=== PATIENT | male | born 1955 | race Caucasian/White ===

== ENCOUNTER 2018-04-12 14:52 | Inpatient (IN) | payer MEDICARE ==
[~2018-04-12] VITALS: Ht 177.8 cm; Wt 92.2 kg
[~2018-04-12 14:52] MED LIST: HUMALOG MI100 UNITS/ SC; LOSARTAN POTASS25 MG PO; PRAVASTATIN SOD40 MG PO
[2018-04-12] MEDS ORDERED: ONDANSETRON HCL INJ 2 MG/ML VIAL IV STA (15:22)
[2018-04-12] MEDS ORDERED: DIATRIZOATE MEGL/DIATRIZOA SOD 30 ML BTL PO ONE (15:29)
[2018-04-12] MEDS ORDERED: HYOSCYAMINE SULFATE 0.5 MG/ML AMP IV ONE (15:30)
[2018-04-12] MEDS ORDERED: SODIUM CHLORIDE 0.9% 1000ML 1,000 ML IV ONE (15:30)
[2018-04-12 16:26] LABS: CLARITY,URINE CLOUDY (CLEAR); COLOR,URINE YELLOW (YELLOW); LEUKOCYTE ESTERASE ,URINE TRACE (NEGATIVE); NITRITE,URINE NEGATIVE (NEGATIVE); PROTEIN,URINE DIPSTICK 1+ (NEGATIVE)
[2018-04-12 16:27] LABS: BILIRUBIN,URINE NEGATIVE (NEGATIVE); KETONES,URINE NEGATIVE (NEGATIVE); URINE UROBILINOGEN 0.2 mg/dL (0.2 - 1)
[2018-04-12 16:39] LABS: BACTERIA,URINE FEW /HPF
[2018-04-12 16:40] LABS: AMORPHOUS SEDIMENT,URINE FEW (FEW); MUCUS,URINE FEW (RARE)
[2018-04-12] MEDS ORDERED: ONDANSETRON HCL 4 MG ORAL DISINTEGRATING TAB PO ONE (16:45)
[2018-04-12 16:48] LABS: HEMATOCRIT 48.7 % (38.2-49.6); HEMOGLOBIN 16.4 g/dL (14.0-18.0); MEAN CORPUSCULAR HEMOGLOBIN 29.4 pg (28-32); MEAN CORPUSCULAR HGB CONC 33.7 g/dL (31-35); MEAN CORPUSCULAR VOLUME 87.3 fL (81-99); PLATELET COUNT 263 x10e3/uL (140-360); RED BLOOD COUNT 5.58 x10e6/uL (4.3-5.7); RED CELL DISTRIBUTION WIDTH 12.9 % (11.7-14.4)
[2018-04-12] MEDS ORDERED: GLYCOPYRROLATE INJ 1MG/ 5 ML SYR ONE (16:57)
[2018-04-12] MEDS ORDERED: DEXAMETHASONE SOD PHOS INJ 4 MG/ML VIAL ONE (16:57)
[2018-04-12] MEDS ORDERED: LIDOCAINE HCL 2% LOCAL INJ 5 ML SDV VIAL INJ ONE (16:57)
[2018-04-12] MEDS ORDERED: SEVOFLURANE INHAL SOLN 250 ML PEN BTL ONE (16:57)
[2018-04-12] MEDS ORDERED: ONDANSETRON HCL INJ 2 MG/ML VIAL ONE (16:57)
[2018-04-12] MEDS ORDERED: EPHEDRINE SULFATE INJ 50 MG/10 ML SYR ONE (16:57)
[2018-04-12] MEDS ORDERED: PROPOFOL IV EMULSION 10 MG/ML 20 ML VIAL ONE (16:57)
[2018-04-12 17:07] LABS: ALBUMIN 4.7 g/dL (3.5-5.0); ALBUMIN/GLOBULIN RATIO 1.7 (0.8-2.0); ANION GAP 15.9 mmol/L (8-16); CALCIUM 10.7 mg/dL (8.4-10.2); CREATININE, SERUM 1.28 mg/dL (0.72-1.25); POTASSIUM 3.9 mmol/L (3.5-5.1)
[2018-04-12] MEDS ORDERED: MORPHINE SULFATE 4 MG/ML SYR IV ONE (17:45)
[2018-04-12] MEDS ORDERED: MORPHINE SULFATE 2 MG/ML SYR ONE (17:51)
--- NOTE | 2018-04-12 17:56 | Diagnostic Imaging Report ---
PROCEDURE: CT ABDOMEN AND PELVIS WITH CONTRAST TECHNIQUE: The abdomen and pelvis were scanned utilizing a multidetector helical scanner from the diaphragm to the lesser trochanter after the IV administration of 100 cc of Isovue 370 and the oral administration of 900 mL of Gastrografin/water. Coronal and sagittal multiplanar reformations were obtained. COMPARISON: None. INDICATIONS: LEFT LOWER QUADRANT PAIN FINDINGS: LOWER THORAX: Normal. HEPATOBILIARY: No focal hepatic lesions. No biliary ductal dilatation. SPLEEN: No splenomegaly. Multiple healed granulomas in the spleen. PANCREAS: No focal masses or ductal dilatation. ADRENALS: No adrenal nodules. KIDNEYS/URETERS: There is a 3 mm stone in the left proximal ureter with very mild left hydronephrosis and hydroureter. There is delayed enhancement of the left kidney and perinephric stranding related to the ureteral obstruction. 5.1 cm simple cyst in the interpolar region of the left kidney. PELVIC ORGANS/BLADDER: Unremarkable. PERITONEUM / RETROPERITONEUM: No free air or fluid. LYMPH NODES: No lymphadenopathy. VESSELS: Mild atherosclerotic calcifications of the aorta and its branches. GI TRACT: No distention or wall thickening. Numerous sigmoid diverticula without evidence of acute inflammation. The appendix is not visualized, but there is no suspicious inflammation in the right lower quadrant. Small hiatal hernia. BONES AND SOFT TISSUES: Multilevel spondylosis of the thoracic and lumbar spine.. IMPRESSION: 3 mm stone in the left proximal ureter with very mild left hydronephrosis and hydroureter. Dictated by: Yoshi Johnson M.D. on 04/12/2018 at 17:58 Electronically approved by: Yoshi Johnson M.D. on 04/12/2018 at 17:58
[2018-04-12 18:24] LABS: LYMPHOCYTES % (MANUAL) 16 % (19-48); METAMYELOCYTES % (MANUAL) 1 % (0-0); MONOCYTES % (MANUAL) 1 % (3.4-9.0); NEUTROPHILS % (MANUAL) 75 % (40-74)
[2018-04-12 18:25] LABS: PLATELET ESTIMATE ADEQUATE; PLATELET MORPHOLOGY COMMENT NORMAL; RBC MORPHOLOGY COMMENT NORMAL
[2018-04-12] MEDS ORDERED: HYOSCYAMINE SULFATE 0.5 MG/ML AMP IV PRN (18:30)
[2018-04-12] MEDS ORDERED: SODIUM CHLORIDE FLUSH 10 ML SYR INJ PRN (18:30)
[2018-04-12] MEDS ORDERED: ONDANSETRON HCL INJ 2 MG/ML VIAL IV PRN (18:30)
--- OUTSIDE RECORDS SUMMARY | 2018-04-12 18:54 | XMS REPORT ---
Author Author [facility] Address Unknown Phone Unavailable Care Team Providers Care [employer] Manager Name Role Phone INGRID TORREZ Unavailable Unavailable Problems This patient has no known problems. Allergies, Adverse Reactions, Alerts This patient has no known allergies or adverse reactions. Medications This patient has no known medications. Results Test Description Test Time Test Comments Text Results Atomic Results Result Comments CT ABDOMEN/PELVIS W [place] [address] Patient Name: BRENDON HE MR #: [id number] : 1955 Age/Sex: 62/M Req #: [id number] Adm Physician: Ordered by: INGRID TORREZ MD Report #: [id number] Location: ER Room/Bed: Procedure: [id number] CT/CT ABDOMEN/PELVIS W Exam Date: Exam Time: REPORT STATUS: Signed PROCEDURE: CT ABDOMEN AND PELVIS WITH CONTRAST TECHNIQUE: The abdomen and pelvis were scanned utilizing a multidetector helical scanner from the diaphragm to the lesser trochanter after the IV administration of 100 cc of Isovue 370 and the oral administration of 900 mL of Gastrografin/water. Coronal and sagittal multiplanar reformations were obtained. COMPARISON: None. INDICATIONS: LEFT LOWER QUADRANT PAIN FINDINGS: LOWER THORAX: Normal. HEPATOBILIARY: No focal hepatic lesions. No biliary ductal dilatation. SPLEEN: No splenomegaly. Multiple healed granulomas in the spleen. PANCREAS: No focal masses or ductal dilatation. ADRENALS: No adrenal nodules. KIDNEYS/URETERS: There is a 3 mm stone in the left proximal ureter with very mild left hydronephrosis and hydroureter. There is delayed enhancement of the left kidney and perinephric stranding related to the ureteral obstruction. 5.1 cm simple cyst in the interpolar region of the left kidney. PELVIC ORGANS/BLADDER: Unremarkable. PERITONEUM / RETROPERITONEUM: No free air or fluid. LYMPH NODES: No lymphadenopathy. VESSELS: Mild atherosclerotic calcifications of the aorta and its branches. GI TRACT: No distention or wall thickening. Numerous sigmoid diverticula without evidence of acute inflammation. The appendix is not visualized, but there is no suspicious inflammation in the right lower quadrant. Small hiatal hernia. BONES AND SOFT TISSUES: Multilevel spondylosis of the thoracic and lumbar spine.. IMPRESSION: 3 mm stone in the left proximal ureter with very mild left hydronephrosis and hydroureter. Dictated by: Cleveland Sears M.D. on 04/12/2018 at 17:58 Electronically approved by: Cleveland Sears M.D. on 04/12/2018 at 17:58 Dictated By: CLEVELAND SEARS MD 57 Transcribed By: NADIYA on 04/12/181757 COPY TO: INGRID TORREZ MD
[2018-04-12] MEDS: SODIUM CHLORIDE 0.9% 1000ML 1,000 ML IV SCH (19:00)
[2018-04-12] MEDS: ENALAPRILAT IV INJ 1.25 MG/ML VIAL IV PRN (19:00)
[2018-04-12 20:00] VITALS: BP 149/97
[2018-04-12] MEDS ORDERED: IOPAMIDOL 370 MG/ML 200 ML INFUS..BTL INJ ONE (20:55)
[2018-04-12] MEDS ORDERED: SODIUM CHLORIDE 0.9% 50ML 50 ML ONE (20:55)
[2018-04-12 21:00] VITALS: BP 149/97
[2018-04-13] VITALS (7 sets, daily range): BP systolic 101–158; BP diastolic 60–95
[2018-04-13] MEDS: SODIUM CHLORIDE 0.9% 1000ML 1,000 ML IV SCH ×4 (04:45→23:25)
[2018-04-13 06:15] LABS: BASOPHILS # (AUTO) 0.1 (0.0-0.1); BASOPHILS % 0.5 % (0.0-1.0); EOSINOPHILS # (AUTO) 0.3 (0.0-0.4); EOSINOPHILS % 1.9 % (0.0-6.0); HEMOGLOBIN 13.9 g/dL (14.0-18.0); LYMPHOCYTES # (AUTO) 4.5 (1.0-3.2); LYMPHOCYTES % 30.3 % (18.0-39.1); MEAN CORPUSCULAR HEMOGLOBIN 29.4 pg (28-32); MEAN CORPUSCULAR HGB CONC 33.1 g/dL (31-35); MONOCYTES # (AUTO) 1.3 (0.2-0.8); MONOCYTES % 8.7 % (4.4-11.3); NEUTROPHILS # (AUTO) 8.6 (2.1-6.9); NEUTROPHILS % 58.3 % (38.7-80.0); PLATELET COUNT 224 x10e3/uL (140-360); RED BLOOD COUNT 4.72 x10e6/uL (4.3-5.7); RED CELL DISTRIBUTION WIDTH 13.1 % (11.7-14.4)
[2018-04-13 06:50] LABS: ANION GAP 11.9 mmol/L (8-16); BLOOD UREA NITROGEN 19 mg/dL (7-26); BUN/CREATININE RATIO 19 (6-25); CALCIUM 9.6 mg/dL (8.4-10.2); CARBON DIOXIDE 26 mmol/L (22-29); CHLORIDE 109 mmol/L (98-107); CREATININE, SERUM 0.99 mg/dL (0.72-1.25); EST GLOMERULAR FILTRATION RATE > 60 ML/MIN (60-); GLUCOSE 85 mg/dL (74-118); POTASSIUM 3.9 mmol/L (3.5-5.1); SODIUM 143 mmol/L (136-145)
[2018-04-13] MEDS: NITROFURANTOIN MACROCRYSTALS 100 MG CAP PO SCH ×2 (09:33→17:54)
[2018-04-13] MEDS: MORPHINE SULFATE 2 MG/ML SYR IV PRN ×2 (13:20→17:55)
--- NOTE | 2018-04-13 14:15 | Diagnostic Imaging Report ---
PROCEDURE:US RETROPERITONEAL ( KIDNEY ). COMPARISON:Patients [facility], CT, CT ABDOMEN/PELVIS W, 04/12/2018, 17:26. INDICATIONS:left kid stones TECHNIQUE: Florentino-scale and color sonographic images of the bilateral kidneys and bladder where obtained in transverse and longitudinal planes. FINDINGS: RIGHT KIDNEY: 13.2 cm, cortex 1.5 cm Cysts: None Solid masses: None Stones: None Hydronephrosis: None Echogenicity: Normal LEFT KIDNEY: 12.5 cm, cortex 2.1 cm Cysts: 5.2 x 4.4 x 4.8 cm cystic, anechoic partially exophytic in the superolateral aspect lesion Solid masses: None Stones: None Hydronephrosis: None Echogenicity: Normal Bladder: No focal lesions. Bilateral ureteral jets are identified. Prostate: 2.0 x 1.7 x 2.7 cm (estimated volume of 4.9 CC). CONCLUSION: 1. Normal bilateral renal size and echogenicity. No hydronephrosis, stone, or solid lesions. 2. 5.2 cm simple cyst in the superolateral aspect of the left kidney. Pedro Joaquin M.D. Dictated by: Pedro Joaquin M.D. on 04/13/2018 at 14:17 Electronically approved by: Pedro Joaquin M.D. on 04/13/2018 at 14:17
[2018-04-13] MEDS: LEVOFLOXACIN 500MG/D5W 100ML 100 ML IV SCH (14:30)
--- NOTE | 2018-04-13 15:07 | Diagnostic Imaging Report ---
PROCEDURE:X-RAY ABDOMEN - KUB COMPARISON:None. INDICATIONS:CALCULI OF KIDNEY FINDINGS: There is a non-obstructed bowel-gas pattern with prominent residual contrast retained in the transverse colon, which obscures the renal shadows. No calcifications projected over the expected course of the ureters or bladder. Multiple pelvic phleboliths. There are no acute osseous abnormalities. The visualized lung bases are clear. Degenerative disc changes in the lumbosacral spine. Mild degenerative changes in the hip joints. CONCLUSION: Evaluation of the kidneys for calcifications is limited by retained contrast in the colon, which obscures the renal shadows. No calcifications project over the expected course of the ureters or bladder. Pedro Joaquin M.D. Dictated by: Pedro Joaquin M.D. on 04/13/2018 at 15:09 Electronically approved by: Pedro Joaquin M.D. on 04/13/2018 at 15:09
[2018-04-13] MEDS: TAMSULOSIN HCL 0.4 MG CAP PO SCH (20:11)
[2018-04-13] MEDS ORDERED: MORPHINE SULFATE 2 MG/ML SYR IV PRN (20:30)
[2018-04-13] MEDS ORDERED: ONDANSETRON HCL 4 MG ORAL DISINTEGRATING TAB PO PRN (20:45)
--- NOTE | 2018-04-13 22:43 | Consultation ---
DATE OF CONSULTATION: April 13, 2018 SERVICE: Urology. ATTENDING: Dr. Denisse Rain HISTORY OF PRESENT ILLNESS: This is a 62-year-old patient was admitted to the hospital for left flank pain. He had a CT scan of the abdomen and pelvis that revealed a 3-mm stone in the upper ureter and mild hydronephrosis. Patient denies any previous history of nephrolithiasis. No previous symptoms similar to the current ones. REVIEW OF SYSTEMS: Twelve systems reviewed. Constitutional: No fever no chills. Minimal dysuria. All other systems negative. PAST HISTORY: See previous notes. MEDICATION: See the EMR. SOCIAL HISTORY: Occasional alcohol. No use of illicit drugs or tobacco. FAMILY HISTORY: Also. PAST MEDICAL HISTORY: Also, significant for diabetes mellitus, mild hypertension. PHYSICAL EXAM VITALS: Blood pressure 140/80, pulse 88, temperature 97.8, respirations 18. GENERAL: The patient is alert and oriented times 3. Does not seem to complain from pain. HEENT: Head symmetric. Eyes are normal movement. NECK: No JVD or mass. CHEST: Clear. HEART: Regular. ABDOMEN: Soft with some left CVA tenderness. External genitalia uncircumcised. No testicular masses. LOWER EXTREMITIES: Moves all. LABORATORY DATA: CT scan of the abdomen and pelvis report was mentioned earlier, 3-mm stone in the upper ureter on the left side and mild hydronephrosis. White count 14.77, hemoglobin 13.9. Chemistry, electrolytes normal, creatinine 0.99, BUN 19. Urinalysis 11 to 20 red blood cells and 11 to 20 white blood cells per high power field. IMPRESSIONS 1. Left renal colic. 2. Left ureterolithiasis. 3. Left hydronephrosis. 4. Diabetes mellitus. 5. History of left total knee. PLAN: Pending his symptoms, consider additional steps. He may need placement of double-J stent on the left side before any further management. Thank you. Will follow with you. Job#: [id number] CQ
[2018-04-14] VITALS (7 sets, daily range): BP systolic 113–164; BP diastolic 70–108
[2018-04-14] MEDS: NITROFURANTOIN MACROCRYSTALS 100 MG CAP PO SCH ×2 (08:00→17:16)
[2018-04-14] MEDS: SODIUM CHLORIDE 0.9% 1000ML 1,000 ML IV SCH ×3 (09:40→20:42)
[2018-04-14] MEDS ORDERED: IOPAMIDOL 610MG/1ML 300 MG/ML VIAL IV ONE (11:48)
[2018-04-14] MEDS: LEVOFLOXACIN 500MG/D5W 100ML 100 ML IV SCH (14:11)
[2018-04-14] MEDS ORDERED: FENTANYL CITRATE/PF 100MCG/2 ML INJ ONE (15:10)
[2018-04-14] MEDS: ENALAPRILAT IV INJ 1.25 MG/ML VIAL IV PRN (16:15)
[2018-04-14] MEDS: TAMSULOSIN HCL 0.4 MG CAP PO SCH (20:42)
--- NOTE | 2018-04-14 23:10 | Operative Report ---
DATE OF PROCEDURE: April 14, 2018 SERVICE: Urology. ATTENDING PHYSICIAN: Dr. Denisse Altamirano PREOPERATIVE DIAGNOSES: 1. Left renal colic. 2. Left ureterolithiasis. 3. Microhematuria. POSTOPERATIVE DIAGNOSES: 1. Left renal colic. 2. Left ureterolithiasis. 3. Microhematuria. 4. Urethral stricture. OPERATIONS PERFORMED: 1. Cystoscopy and urethral dilation. 2. Right retrograde pyelograms under fluoroscopic control. This is done as part of the assessment of microhematuria, not related to the contralateral side. 3. Left retrograde pyelograms under fluoroscopic control. 4. Left ureteroscopy with stone basket removal of stone from the distal ureter. 5. Placement of double-J stent 7-[place] 24 cm long to the left side. DRY CANS OPERATOR: None. ANESTHESIA: General. CLINICAL INDICATION NOTE: This is a 62-year-old patient presented with left renal colic, found to have a stone. The pain persists and did not pass the stone. He was brought for treatment and attempt hopefully to remove the stone. Procedure was discussed with the patient. Potential benefits and complication discussed, explained and accepted. DESCRIPTION OF PROCEDURE AND FINDINGS: After proper level of anesthesia was achieved, the patient was placed in lithotomy position, prepped and draped in sterile fashion. Upon insertion of the cystoscope, a stricture was noticed to be dilated to 28-[place]. Scope was then inserted to the bladder. No tumor was seen in the bladder. There was question of a protruding stone from the left ureteral orifice, it was not possible to pull it out. Open-end catheter was inserted to the right side, and retrograde pyelograms demonstrating a normal system. Drainage was prompt. Following this, a wire was passed up to the left side, retrograde pyelograms demonstrating dilation of the ureter and upper collecting system and a blocking stone. Following this, the wire was kept in place and a semi-rigid short ureteroscope was inserted. The stone was identified and engaged in a stone basket and removed. The wire was kept in place, and a 7-[place] 24 cm long double-J stent was properly positioned on the left side. This was verified by endoscopy and x-ray. Following this, Councill-tip type of catheter 22-[place]er was placed over the wire and placed in the bladder. Patient tolerated the procedure well, was transferred in satisfactory condition to recovery room. He will be followed. Job#: [id number] cc:HONG ALTAMIRANO MD
[2018-04-15] VITALS: BP 127/70
[2018-04-15 04:00] VITALS: BP 137/80
[2018-04-15 07:00] VITALS: BP 154/84
[2018-04-15] MEDS: NITROFURANTOIN MACROCRYSTALS 100 MG CAP PO SCH (08:00)
[2018-04-15 08:03] VITALS: BP 154/84
[2018-04-15] MEDS: SODIUM CHLORIDE 0.9% 1000ML 1,000 ML IV SCH (10:24)
[2018-04-15 12:00] VITALS: BP 148/95
[2018-04-15] MEDS: LEVOFLOXACIN 500MG/D5W 100ML 100 ML IV SCH (14:46)
--- NOTE | 2018-04-15 14:54 | Operative Report ---
DATE OF PROCEDURE: April 14, 2018 SERVICE: Urology. ATTENDING PHYSICIAN: Dr. Julian Rowley PREOPERATIVE DIAGNOSIS: Dictation ended abruptly 00:34 seconds. Job#: [id number]
[2018-04-15] MEDS ORDERED: TYLENOL WITH C1 EACH PO (15:55)
[2018-04-15] MEDS ORDERED: LEVAQUIN500 MG PO (15:55)
[2018-04-15 16:00] VITALS: BP 159/101
[2018-05-04] MEDS ORDERED: METFORMIN PO (08:20)
[2018-05-04] MEDS ORDERED: LISINOPRIL PO (08:20)
[2018-05-04] MEDS ORDERED: GLIMEPIRIDE PO (08:20)
== END 2018-04-15 16:34 | disposition home or self-care (01) | DRG 669 ==
LOC: ER 14:52 → ERHOLD 18:51 → IMCU 20:09 → OBSVTOIN 04-15 15:30
PROC: 0TC78ZZ Extirpation of Matter from Left Ureter, Via Natural or Artificial Opening Endoscopic (ICD-10-PCS; 2018-04-14)
PROC: BT141ZZ Fluoroscopy of Kidneys, Ureters and Bladder using Low Osmolar Contrast (ICD-10-PCS; 2018-04-14)
PROC: 0T778DZ Dilation of Left Ureter with Intraluminal Device, Via Natural or Artificial Opening Endoscopic (ICD-10-PCS; 2018-04-14)
PROC: 0T7D8ZZ Dilation of Urethra, Via Natural or Artificial Opening Endoscopic (ICD-10-PCS; principal; 2018-04-14 12:01)
DX: N13.2 Hydronephrosis with renal and ureteral calculous obstruction (principal); R31.29 Other microscopic hematuria; N35.9 Urethral stricture, unspecified; N28.1 Cyst of kidney, acquired; N17.1 Acute kidney failure with acute cortical necrosis; D64.9 Anemia, unspecified; D72.829 Elevated white blood cell count, unspecified; E11.9 Type 2 diabetes mellitus without complications; Z79.84 Long term (current) use of oral hypoglycemic drugs; Z87.891 Personal history of nicotine dependence; Z88.7 Allergy status to serum and vaccine
CPT/HCPCS: 36415; 74018; 74177; 74420; 76770; 80048; 80053; 81001; 82948; 83690; 85007; 85025; 85027; 87086; 88300; 99284; C2617; G0378; J1100; J1956; J1980; J2001; J2270; J2405; J7030; Q9967

== ENCOUNTER → 2018-04-20 | Outpatient (CLI) | payer MEDICARE ==
[~2018-04-20] MED LIST changes: +LEVAQUIN500 MG PO; +TYLENOL WITH C1 EACH PO
--- NOTE | 2018-04-20 12:58 | Diagnostic Imaging Report ---
PROCEDURE:ABDOMEN-1VIEW (KUB) TECHNIQUE:Supine AP abdomen totaling 2 radiographs INDICATION:Calculus of kidney; followup COMPARISON:[facility], CT, CT ABDOMEN/PELVIS W, 04/12/2018, 17:26. Patients [facility], DX, RETROGRADE PYELOGRAM, 04/14/2018, 11:52. Patients [facility], DX, ABDOMEN-1VIEW (KUB), 04/13/2018, 14:51. FINDINGS: Left double-J ureteral stent loops formed in the expected region of the renal pelvis and urinary bladder. No evidence of stent encrustation. Questionable 2 mm calcification within the left distal ureter. Multiple pelvic phleboliths. Normal bowel gas pattern. Intact skeleton. CONCLUSION: 1. Indwelling left double-J ureteral stent without abnormality. 2. Questionable 2 mm stone in the left distal ureter adjacent to the stent. Dictated by: Jaspreet Lopez M.D. on 04/20/2018 at 13:00 Electronically approved by: Jaspreet Lopez M.D. on 04/20/2018 at 13:00
== END ==
LOC: RAD 12:05
PROVIDERS: ATTEND Urology
DX: N20.0 Calculus of kidney (principal)
CPT/HCPCS: 74018

== ENCOUNTER → 2018-05-09 | Day surgery (SDC) | payer MEDICARE ==
[2018-05-04 08:59] LABS: ANION GAP 12.2 mmol/L (8-16); BLOOD UREA NITROGEN 12 mg/dL (7-26); BUN/CREATININE RATIO 12 (6-25); CALCIUM 9.7 mg/dL (8.4-10.2); CARBON DIOXIDE 27 mmol/L (22-29); CHLORIDE 105 mmol/L (98-107); EST GLOMERULAR FILTRATION RATE > 60 ML/MIN (60-); GLUCOSE 156 mg/dL (74-118); POTASSIUM 4.2 mmol/L (3.5-5.1); SODIUM 140 mmol/L (136-145)
[~2018-05-09] MED LIST changes: +BELLADONNA/OPIUM 30 MG SUPP RC ONE; +CEFAZOLIN SOD 1 GM VIAL ONE; +DEXAMETHASONE SOD PHOS INJ 4 MG/ML VIAL ONE; +FENTANYL CITRATE/PF 100MCG/2 ML INJ ONE; +FLOMAX0.4 MG PO; +GLIMEPIRIDE PO; +IOPAMIDOL 610MG/1ML 300 MG/ML VIAL IV ONE; +LIDOCAINE HCL 2% LOCAL INJ 5 ML SDV VIAL INJ ONE; +LISINOPRIL PO; +METFORMIN PO; +MIDAZOLAM HCL 2 MG/2 ML VIAL ONE; +ONDANSETRON HCL INJ 2 MG/ML VIAL ONE; +PROPOFOL IV EMULSION 10 MG/ML 20 ML VIAL ONE; +SEVOFLURANE INHAL SOLN 250 ML PEN BTL ONE
--- OUTSIDE RECORDS SUMMARY | 2018-05-09 07:24 | XMS REPORT | Continuity of Care Document ---
Author Author [facility] Organization [facility] Address [address] [place] [address] Phone Unavailable Care Team Providers Care Financial Advocate Name Role Phone TERE LINARES MD PCP Insurance Providers Guarantor Brendon Toussaint Address [address] [place] [address] Email PT DECLINED Payer Care Improvement Plus Policy Number [id number] Subscriber's Name Brendon Toussaint Relationship 18 Self / Same As Patient Group Number [id number] Group Name DISABLED Effective Date 17 Advance Directives Directive Response Recorded Date/Time Does the patient have an advance directive? No 04/12/18 8:30pm If yes, is advance directive on file with [facility]? No 02/04/10 8:58am If not on file with [facility] will patient provide a copy? No 10/15/12 4:36pm Do you have a Directive to Physician? No 04/12/18 4:11pm Do you have a Medical Power of Instructional Technology Coordinator? No 04/12/18 4:11pm Do you have an out of hospital Do Not Resuscitate Order? No 04/12/18 4:11pm Do you have any special needs we should be aware of? No 04/12/18 4:11pm Do you have a support person here with you today? Yes 04/12/18 4:11pm Did patient receive Notice of Privacy Practices? Yes 04/12/18 4:11pm Did patient receive patient rights and responsibilities? Yes 04/12/18 4:11pm Problems Medical Problem Onset Date Status Kidney stone on left side Unknown Renal colic on left side Unknown Medications Current Home Medications Medication Dose Units Route Directions Days Qty Instructions Start Date Acetaminophen With Codeine (Tylenol With Codeine #3 Tablet) 1 Each Tablet 300 Mg Oral Every 4 Hours as needed for Pain Levofloxacin (Levaquin) 500 Mg Tablet 500 Mg Oral Daily Pravastatin Sodium 40 Mg Tablet 40 Mg Oral Daily Past Home Medications Medication Directions Ordered Status Insulin Lisp Protam/Lisp Human (Humalog Mix 75-25 Vial) 100 Units/Ml Ml, 25 Units Subcutaneously Twice A Day Discontinued Losartan Potassium 25 Mg Tablet, 50 Mg Oral Daily Discontinued Social History Social History Problem Response Recorded Date/Time Onset Date Status Hx Psychiatric Problems No 04/12/2018 8:30pm Not Applicable Not Applicable Hx Eating Disorder No 04/12/2018 8:30pm Not Applicable Not Applicable Hx Substance Use Disorder No 04/12/2018 8:30pm Not Applicable Not Applicable Hx Depression No 04/12/2018 8:30pm Not Applicable Not Applicable Hx Alcohol Use No 04/12/2018 8:30pm Not Applicable Not Applicable Hx Substance Use Treatment No 04/12/2018 8:30pm Not Applicable Not Applicable Hx Physical Abuse No 04/12/2018 8:30pm Not Applicable Not Applicable Smoking Status Start Date Stop Date Former smoker Hospital Discharge Instructions No hospital discharge instruction information available. Plan of Care Discharge Date 04/15/18 4:34pm Disposition HOME, SELF-CARE Instructions/Education Provided Cystoscopy Wells Catheter Care Prescriptions See Medication Section Additional Instructions/Education Alternate between leg bag and bedside bag F/U with Dr. Gerardo Zuleta in 1 week March shower Functional Status Query Response Date Recorded Assistive Devices None April 12, 2018 9:00pm Ambulation Ability Independent April 12, 2018 9:00pm Toileting Ability Independent April 12, 2018 9:00pm Allergies, Adverse Reactions, Alerts No known allergies. Immunizations No immunization information available. Vital Signs Acute Vital Signs Vital Response Date/Time Temperature (Fahrenheit) 96.8 degrees F (97.6 - 99.5) 04/15/2018 12:19pm Pulse Pulse Rate (adult) 75 bpm (60 - 90) 04/15/2018 12:19pm Respiratory Rate 16 bpm (12 - 24) 04/15/2018 12:19pm Blood Pressure 154/84 mm Hg 04/15/2018 8:03am Height 5 ft 10 in 04/12/2018 3:20pm Weight 203.25 lb 04/14/2018 1:19am Body Mass Index 29.2 kg/m^2 04/14/2018 1:19am Results Laboratory Results Test Name Result Units Flags Reference Collection Date/Time Result Date/ Time Comments White Blood Count 14.77 x10e3/uL H 4.8-10.8 04/13/2018 6:10a2017 6:27am Red Blood Count 4.72 x10e6/uL 4.3-5.7 04/13/2018 6:10a04/13/2018 6: 27am Hemoglobin 13.9 g/dL L 14.0-18.0 04/13/2018 6:10a04/13/2018 6:27am Hematocrit 42.0 % 38.2-49.6 04/13/2018 6:10a04/13/2018 6:27am Mean Corpuscular Volume 89.0 fL 81-99 04/13/2018 6:10a04/13/2018 6: 27am Mean Corpuscular Hemoglobin 29.4 pg 28-32 04/13/2018 6:10a04/13/2018 6:27am Mean Corpuscular Hemoglobin Concent 33.1 g/dL 31-35 04/13/2018 6:10a04/13/2018 6:27am Red Cell Distribution Width 13.1 % 11.7-14.4 04/13/2018 6:10a2017 6:27am Platelet Count 224 x10e3/uL 140-360 04/13/2018 6:10a04/13/2018 6: 27am Neutrophils (%) (Auto) 58.3 % 38.7-80.0 04/13/2018 6:04/13/2018 6: 27am Lymphocytes (%) (Auto) 30.3 % 18.0-39.1 04/13/2018 6:04/13/2018 6: 27am Monocytes (%) (Auto) 8.7 % 4.4-11.3 04/13/2018 6:04/13/2018 6: 27am Eosinophils (%) (Auto) 1.9 % 0.0-6.0 04/13/2018 6:04/13/2018 6: 27am Basophils (%) (Auto) 0.5 % 0.0-1.0 04/13/2018 6:04/13/2018 6:27am IM GRANULOCYTES % 0.3 % 0.0-1.0 04/13/2018 6:04/13/2018 6:27am Neutrophils # (Auto) 8.6 H 2.1-6.9 04/13/2018 6:04/13/2018 6: 27am Lymphocytes # (Auto) 4.5 H 1.0-3.2 04/13/2018 6:04/13/2018 6: 27am Monocytes # (Auto) 1.3 H 0.2-0.8 04/13/2018 6:04/13/2018 6:27am Eosinophils # (Auto) 0.3 0.0-0.4 04/13/2018 6:04/13/2018 6:27am Basophils # (Auto) 0.1 0.0-0.1 04/13/2018 6:04/13/2018 6:27am Absolute Immature Granulocyte (auto 0.04 x10e3/uL 0-0.1 04/13/2018 6: 04/13/2018 6:27am Differential Total Cells Counted 100 04/12/2018 4:35pm 04/12/2018 6 :25pm Neutrophils % (Manual) 75 % H 40-74 04/12/2018 4:35pm 04/12/2018 6:25pm Lymphocytes % (Manual) 16 % L 19-48 04/12/2018 4:35pm 04/12/2018 6:25pm Monocytes % (Manual) 1 % L 3.4-9.0 04/12/2018 4:35pm 04/12/2018 6:25pm Metamyelocytes % 1 % H 0-0 04/12/2018 4:35pm 04/12/2018 6:25pm Reactive Lymphocytes 7 04/12/2018 4:35pm 04/12/2018 6:25pm Platelet Estimate ADEQUATE 04/12/2018 4:35pm 04/12/2018 6:25pm Platelet Morphology Comment NORMAL 04/12/2018 4:35pm 04/12/2018 6: 25pm Red Cell Morphology Comment NORMAL 04/12/2018 4:35pm 04/12/2018 6: 25pm Urine Color YELLOW YELLOW 04/12/2018 3:24pm 04/12/2018 4:27pm Urine Clarity CLOUDY H CLEAR 04/12/2018 3:24pm 04/12/2018 4:27pm Urine Specific [place] 1.030 H 1.010-1.025 04/12/2018 3:24pm 2017 4:27pm Urine pH 5 5 - 7 04/12/2018 3:24pm 04/12/2018 4:27pm Urine Leukocyte Esterase TRACE H NEGATIVE 04/12/2018 3:24pm 2017 4:27pm Urine Nitrite NEGATIVE NEGATIVE 04/12/2018 3:24pm 04/12/2018 4:27pm Urine Protein 1+ H NEGATIVE 04/12/2018 3:24pm 04/12/2018 4:27pm Urine Glucose (UA) NEGATIVE NEGATIVE 04/12/2018 3:24pm 04/12/2018 4: 27pm Urine Ketones NEGATIVE NEGATIVE 04/12/2018 3:24pm 04/12/2018 4:27pm Urine Urobilinogen 0.2 mg/dL 0.2 - 1 04/12/2018 3:24pm 04/12/2018 4: 27pm Urine Bilirubin NEGATIVE NEGATIVE 04/12/2018 3:24pm 04/12/2018 4: 27pm Urine Blood 3+ H NEGATIVE 04/12/2018 3:24pm 04/12/2018 4:27pm Urine WBC 11-20 /HPF H 0-5 04/12/2018 3:24pm 04/12/2018 4:40pm Urine RBC 11-20 /HPF H 0-5 04/12/2018 3:24pm 04/12/2018 4:40pm Urine Bacteria FEW /HPF NONE 04/12/2018 3:24pm 04/12/2018 4:40pm Urine Epithelial Cells NONE /LPF NONE 04/12/2018 3:24pm 04/12/2018 4: 40pm Urine Amorphous Sediment FEW FEW 04/12/2018 3:24pm 04/12/2018 4:40pm Urine Mucus FEW H RARE 04/12/2018 3:24pm 04/12/2018 4:40pm Sodium Level 143 mmol/L 136-145 04/13/2018 6:04/13/2018 6:52am Potassium Level 3.9 mmol/L 3.5-5.1 04/13/2018 6:04/13/2018 6:52am Chloride Level 109 mmol/L H 98-107 04/13/2018 6:04/13/2018 6:52am Carbon Dioxide Level 26 mmol/L 22-04/13/2018 6:04/13/2018 6: 52am Anion Gap 11.9 mmol/L 8-04/13/2018 6:04/13/2018 6:52am Blood Urea Nitrogen 19 mg/dL 7-04/13/2018 6:04/13/2018 6:52am Creatinine 0.99 mg/dL 0.72-1.25 04/13/2018 6:04/13/2018 6:52am BUN/Creatinine Ratio 19 6-04/13/2018 6:04/13/2018 6:52am Estimat Glomerular Filtration Rate > 60 ML/MIN 60- 04/13/2018 6: 6:52am Ranges were taken from the National Kidney Disease Education Program and the National Kid[employer] Foundation literature. Reference ranges: 60 or greater: Normal 16-59 (for 3 consecutive months): Chronic kidney disease 15 or less: Kidney failure Glucose Level 85 mg/dL 74-118 04/13/2018 6:04/13/2018 6:52am Calcium Level 9.6 mg/dL 8.4-10.2 04/13/2018 6:04/13/2018 6:52am Bedside Glucose 113 mg/dL 70-120 04/15/2018 4:14pm 04/15/2018 4:24pm Meter ID: [id number] Total Bilirubin 0.6 mg/dL 0.2-1.2 04/12/2018 4:35pm 04/12/2018 5:08pm Aspartate Amino Transf (AST/SGOT) 16 IU/L 5-34 04/12/2018 4:35pm 2017 5:08pm Alanine Aminotransferase (ALT/SGPT) 15 IU/L 0-55 04/12/2018 4:35pm 5:08pm Total Protein 7.5 g/dL 6.5-8.1 04/12/2018 4:35pm 04/12/2018 5:08pm Albumin 4.7 g/dL 3.5-5.0 04/12/2018 4:35pm 04/12/2018 5:08pm Globulin 2.8 g/dL 2.3-3.5 04/12/2018 4:35pm 04/12/2018 5:08pm Albumin/Globulin Ratio 1.7 0.8-2.0 04/12/2018 4:35pm 04/12/2018 5: 08pm Alkaline Phosphatase 37 IU/L L 40-150 04/12/2018 4:35pm 04/12/2018 5: 08pm Lipase 29 U/L 8-78 04/12/2018 4:35pm 04/12/2018 5:08pm Procedures Procedure Status Date Provider(s) Cystoscopy with retrograde pyelography Completed 04/14/18 VERONICA ZULETA MD Computed tomography of abdomen and pelvis with contrast Active 04/12/18 INGRID TORREZ MD Ultrasound, renal Active 04/13/18 ERNESTO ALTAMIRANO MD Encounters Encounter Location Arrival/Admit Date Discharge/Depart Date Attending Provider Discharged Inpatient (obs) [facility] 04/12/18 6:51pm 4:34pm ERNESTO ALTAMIRANO MD
--- NOTE | 2018-05-09 08:13 | Diagnostic Imaging Report ---
PROCEDURE:CHEST 2 VIEWS TECHNIQUE:PA and lateral chest INDICATION:Preoperative evaluation for kidney stones COMPARISON:None. FINDINGS: The lungs are clear and symmetrically inflated. No pleural effusions. Normal heart size and the mediastinal contour, and pulmonary vasculature. Intact skeleton. CONCLUSION: Normal chest. Dictated by: Jaspreet Lopez M.D. on 05/09/2018 at 8:16 Electronically approved by: Jaspreet Lopez M.D. on 05/09/2018 at 8:16
--- NOTE | 2018-05-09 19:57 | Operative Report ---
DATE OF PROCEDURE: May 09, 2018 SERVICE: Urology. PREOPERATIVE DIAGNOSIS: 1. History of left nephrolithiasis. 2. Left double J stent. 3. Microhematuria. POSTOPERATIVE DIAGNOSIS: 1. History of left nephrolithiasis. 2. Left double J stent. 3. Microhematuria. OPERATION PERFORMED: 1. Cystoscopy and right retrograde pyelograms under fluoroscopic control. This was done as part of the assessment of the microhematuria. 2. Removal of double J stent from the left side. 3. Left retrograde pyelograms under fluoroscopic control. 4. Left ureteroscopy. 5. Interpretation of x-ray. Radiologist not present. 6. Supervision of fluoroscopy. GROUNDING ENGINEER: None. ANESTHESIA: General. CLINICAL INDICATION NOTE: This is a 62-year-old patient that has a double J stent. He was found in the past to have a small calculus on the left side. He was brought for evaluation and possible removal of this stent. DESCRIPTION OF PROCEDURE AND FINDINGS: After a proper level of anesthesia was achieved, the patient was placed in the lithotomy position, prepped and draped in sterile fashion. Urethra inspected, is unremarkable. Bladder outlet is normal. Prostate minimally enlarged. Bladder is somewhat trabeculated. Double J stent is protruding from the left side. Open-end catheter inserted to the right side. Retrograde pyelogram was unremarkable. Following this, left double J stent was removed. Open-end catheter was inserted to the left side, and retrograde pyelogram did not demonstrate any obstruction along the ureter, which appeared to be relatively narrow. The upper collecting system is not dilated. A guidewire was kept in place, and a flexible ureteroscopy was done. No stones were identified in the calices or in the pelvis or along the ureter; and, therefore, it was elected not to reposition the double J stent. Supervision of fluoroscopy and interpretation of x-ray were done by nh. Radiologist not present. Patient was transferred in satisfactory condition to the recovery room and will be discharged and followed as outpatient. Job#: [id number] EV
== END | disposition home or self-care (01) ==
LOC: OR 07:21
PROVIDERS: ATTEND Urology
DX: Z46.6 Encounter for fitting and adjustment of urinary device (principal); R31.29 Other microscopic hematuria; Z87.442 Personal history of urinary calculi; N40.0 Benign prostatic hyperplasia without lower urinary tract symptoms; I10 Essential (primary) hypertension; E11.9 Type 2 diabetes mellitus without complications; F41.9 Anxiety disorder, unspecified; F32.9 Major depressive disorder, single episode, unspecified; F17.290 Nicotine dependence, other tobacco product, uncomplicated; Z01.810 Encounter for preprocedural cardiovascular examination; Z01.818 Encounter for other preprocedural examination; Z79.84 Long term (current) use of oral hypoglycemic drugs
CPT/HCPCS: 36415; 52351; 71046; 74420; 80048; 93005; J0690; J1100; J2001; J2250; J2405; Q9967

== ENCOUNTER → 2019-04-26 | Outpatient (CLI) | payer MEDICARE ==
[~2019-04-26] MED LIST changes: -BELLADONNA/OPIUM 30 MG SUPP RC ONE; -CEFAZOLIN SOD 1 GM VIAL ONE; -DEXAMETHASONE SOD PHOS INJ 4 MG/ML VIAL ONE; -FENTANYL CITRATE/PF 100MCG/2 ML INJ ONE; -IOPAMIDOL 610MG/1ML 300 MG/ML VIAL IV ONE; -LIDOCAINE HCL 2% LOCAL INJ 5 ML SDV VIAL INJ ONE; -MIDAZOLAM HCL 2 MG/2 ML VIAL ONE; -ONDANSETRON HCL INJ 2 MG/ML VIAL ONE; -PROPOFOL IV EMULSION 10 MG/ML 20 ML VIAL ONE; -SEVOFLURANE INHAL SOLN 250 ML PEN BTL ONE
--- NOTE | 2019-04-26 12:21 | Diagnostic Imaging Report ---
Exam: Abdominal film Clinical History: Calculus of kidney Comparison: None. DISCUSSION: 4 mm calcific density projects over the upper pole of the left renal shadow. No additional calcifications project over the renal shadows, expected ureteral courses. Multiple pelvic phleboliths. Bowel gas pattern is nonobstructive. Regional skeletal structures are intact. Mild degenerative arthrosis of the hips. IMPRESSION: Suspected 4 mm left renal calculus. Signed by: Dr. Joaquin Jeter M.D. on 04/26/2019 12:17 PM
== END ==
LOC: RAD 11:31
PROVIDERS: ATTEND Urology
DX: N20.0 Calculus of kidney (principal)
CPT/HCPCS: 74018